=== PATIENT | male | born 1940 | race Caucasian/White ===

== ENCOUNTER 2019-01-05 12:39 | Inpatient (IN) ==
[2019-01-05] MEDS ORDERED: LOVENOX SUBQ SCH ×2 (14:30→17:30)
[2019-01-05] MEDS ORDERED: NS 1,000 ML IV SCH (14:30)
[2019-01-05 15:01] LABS: ALLEN TEST YES; BE -0.5 mmoll (-3.0-3.0); BLOOD TYPE ARTERIAL; HCO3-(ACT) 24.1 mmoll (20.0-26.0); METHB 0.5 % (0.0-1.5); PCO2(98.6) 33 mmHg (35-45); SAMPLE BLOOD; THB 12.5 g/dL (11.5-17.4); pH(98.6) 7.45 (7.35-7.45)
[2019-01-05 15:04] LABS: MODALITY ROOM AIR; O2HB 79.9 % (95.0-99.0); PO2(98.6) 43 mmHg (60-100); SAO2 82.8 % (95.0-100.0)
[2019-01-05] MEDS: DUONEB (A & A) INH PRN ×2 (15:22→23:08)
[2019-01-05] MEDS: ROCEPHIN 1 GM in NS 50 ML IV SCH (16:02)
[2019-01-05] MEDS: PROTONIX IV SCH (16:02)
[2019-01-05] MEDS: SODIUM CHLORIDE 0.9% INJ SCH (16:03)
[2019-01-05] MEDS: LEVAQUIN 250 MG/D5W 250 MG/50 ML IVPB IV SCH (17:06)
[2019-01-05] MEDS: HUMULIN R SUBQ SCH ×2 (18:45→21:54)
--- NOTE | 2019-01-05 19:39 | HISTORY AND PHYSICAL ---
CHIEF COMPLAINT: Cough, fever, shortness of breath, and hypoxemia. HISTORY OF PRESENT ILLNESS: He is an 78-year-old white gentleman with known history of COPD, was evaluated in our walk-in clinic over the weekend with COPD exacerbation. He was treated as an outpatient, and failed to improve. He came in with a second time with worsening of shortness of breath, hypoxemia, and elevated white cell count 15,000. He had a running low-grade fever, and blood pressure was getting low as well as exertional shortness of breath. Basically, he was admitted to the hospital with acute COPD exacerbation. White cell count was 15,000. PAST MEDICAL HISTORY: 1. Coronary artery disease. 2. COPD. 3. Right bundle branch block. 4. Abdominal aortic aneurysm. 5. Ischemic cardiomyopathy with chronic systolic heart failure and EF 30 to 40 percent. 6. Type 2 diabetes. 7. Deafness. 8. Hyperlipidemia. 9. Chronic nicotine dependency. 10. Simple renal cyst in the left kidney. PAST SURGICAL HISTORY: 1. Appendectomy. 2. Back surgery x8. 3. Hemorrhoidectomy. 4. 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 5. Bilateral cataract surgery. 6. Right ulnar transposition. ALLERGIES: Not known. SOCIAL HISTORY: Retired tier lift truck operator. . 3 children. Living in [place]. Continues to smoke. No alcohol. FAMILY HISTORY: Father of complications from rheumatoid arthritis at the age of 76. Mom of heart attack. HEALTH MAINTENANCE: Pneumococcal vaccine 13, was given 2018. Recently, a physical done 2 weeks ago. REVIEW OF SYSTEMS: HEENT: No headache. No vision problem. No earache. No sore throat. Neck: No goiter. No lymphadenopathy. No bruit. Cardiopulmonary: Shortness of breath, cough, and wheezing. No chest pain. GI: No nausea, vomiting, or abdominal pain. : No history of hesitancy, frequency, or dysuria. No swelling of feet. No joint pain. Neurologic: No focal symptoms or weakness. OBJECTIVE: Vital Signs: Temperature 98 degrees, pulse 77, blood pressure 111/47, and 2 L nasal cannula 93%. Height 6 feet 3, and 199 pounds. HEENT: Atraumatic, normocephalic. Pupils equal and react to light. Hearing aids placed. Neck: Supple. No lymphadenopathy. Chest: Bilateral air entry. Prolonged expiratory wheezing. Heart: Sounds are very distant. Belly is soft and nontender. Good bowel sounds. No peripheral edema or cyanosis. No obvious neurological deficits. INVESTIGATIONS: In my office, CBC showed a white cell count 15, BUN 45, creatinine 2.0. ABG: pH is 7.45, pCO2 33, PO2 43 on room air. Chest x-ray with possible right lower lobe pneumonia with COPD changes. ASSESSMENT AND PLAN: 1. An 78-year-old white gentleman admitted to the hospital with acute chronic obstructive pulmonary disease exacerbation, failure of outpatient treatment, hypoxemia, on oxygen. Repeat the chest x-ray in the morning. 2. Gentle hydration. Check the labs in the morning. 3. Bronchodilators. IV steroids and IV antibiotics with Levaquin and ceftriaxone. 4. Deep venous thrombosis and gastrointestinal prophylaxis with Lovenox and Protonix. 5. History of ischemic cardiomyopathy, currently on Coreg. 6. Chronic nicotine abuse. 7. Type 2 diabetes. We will start on Tresiba and subcutaneous sliding scale with insulin coverage. 8. PAF with status post pacemaker on apixaban 5 mg b.i.d. Discontinue Lovenox and reconcile home medications. 9. Vaccinations up-to-date. 10. Repeat the labs in the morning. cc: Robert Christine MD
[2019-01-05] MEDS ORDERED: ELIQUIS PO SCH (21:00)
[2019-01-05] MEDS: SOLU-MEDROL IV SCH (21:48)
[2019-01-05] MEDS: COREG PO SCH (21:50)
[2019-01-05] MEDS: ELIQUIS PO SCH (21:52)
[2019-01-05] MEDS: BUSPAR PO SCH (21:52)
[2019-01-06] MEDS: NS 1,000 ML IV SCH (04:34)
[2019-01-06] MEDS ORDERED: INSULIN PEN NEEDLES ONE (06:24)
[2019-01-06] MEDS: TRESIBA FLEXTOUCH U-100 SUBQ SCH ×3 (06:46→16:49)
[2019-01-06] MEDS: HUMULIN R SUBQ SCH ×4 (06:46→21:20)
[2019-01-06 07:05] LABS: BASO# 0.01 X1000 (0.0-0.2); BASO% 0.1 % (0.0-0.8); EOS# 0.01 X1000 (0.0-0.7); EOS% 0.1 % (0.0-10.0); HEMATOCRIT 35.7 % (42.0-52.0); IMM GRAN# 0.12 X1000 (0.0-0.04); IMM GRAN% 1.6 % (0.0-0.5); LYMPH% 12.1 % (20.5-51.1); MCH 30.4 PG (27-31); MCHC 33.6 g/dL (33-37); MCV 90.4 FL (81-99); MONO% 2.7 % (1.7-9.3); MPV 10.5 FL (7.4-10.4); NEUT# 6.17 X1000 (1.4-6.5); NEUT% 83.4 % (42.2-75.2); PLT 254 X1000 (130-400); RBC 3.95 XMIL (4.7-6.1); RDW 13.6 % (11.5-14.5); WBC 7.41 X1000 (4.8-10.8)
[2019-01-06 07:15] LABS: ALBUMIN 3.3 g/dL (3.5-5.0); CALCIUM 8.7 mg/dL (8.8-10.2); CREATININE 1.6 mg/dL (0.7-1.2); POTASSIUM 5.3 mmol/L (3.5-5.1); TOTAL BILIRUBIN 0.17 mg/dL (0.20-1.00); TOTAL PROTEIN 6.5 g/dL (6.3-8.3)
[2019-01-06] MEDS: BREO ELLIPTA 100/25 MCG INH INH SCH (08:30)
[2019-01-06] MEDS: SPIRIVA INH SCH (08:30)
--- NOTE | 2019-01-06 08:34 | Diag Imaging Result Doc PS360 ---
EXAM: CHEST-2 VIEWS INDICATION: hypoxia TECHNIQUE: 3-D COMPARISON: 05/14/2018 FINDINGS: There is groundglass airspace consolidation in the left mid to lower lung zone suggesting possible pneumonia. There is also likely a component of atelectasis at the left lung base. The lungs are hyperinflated suggesting COPD. There is no discrete pleural fluid collection or pneumothorax. The cardiomediastinal silhouette and central vasculature are grossly unremarkable. The pacemaker/defibrillator is in stable position. IMPRESSION: Airspace consolidation at the left mid and lower lung zone suggesting possible pneumonia with a likely component of atelectasis at the left lung base. Electronically signed by Immanuel York 01/06/2019 8:32 AM
[2019-01-06] MEDS: BUSPAR PO SCH (08:43)
[2019-01-06] MEDS: SOLU-MEDROL IV SCH (08:44)
[2019-01-06] MEDS: VITAMIN D PO SCH (08:44)
[2019-01-06] MEDS: ASPIRIN EC PO SCH (08:45)
[2019-01-06] MEDS: IMDUR PO SCH (08:45)
[2019-01-06] MEDS: ELIQUIS PO SCH (08:45)
[2019-01-06] MEDS: COREG PO SCH (08:46)
[2019-01-06] MEDS: ALDACTONE PO SCH (08:46)
[2019-01-06] MEDS: NICODERM PATCH TD SCH (08:50)
[2019-01-06] MEDS: PROTONIX IV SCH (13:30)
[2019-01-06] MEDS: ROCEPHIN 1 GM in NS 50 ML IV SCH (13:30)
[2019-01-06] MEDS: LEVAQUIN 250 MG/D5W 250 MG/50 ML IVPB IV SCH (14:07)
--- NOTE | 2019-01-06 21:00 | PROGRESS NOTE ---
DATE: 01/06/2019 SUBJECTIVE: Interval history was reviewed. Patient with no chest pain. Chest x-ray was reviewed. He has left lingular pneumonia as well as in the right side. REVIEW OF SYSTEMS: No fever. OBJECTIVE: Vital Signs: Temperature is 98 degrees, pulse 69. Vitals are stable. HEENT: Within normal limits. Chest: Poor air entry. Expiratory wheezing with crackles in the left base. Heart: Sounds are regular. Abdomen: Belly is soft, nontender. Neurologic: No obvious deficits. INVESTIGATIONS: CBC: White cell count 7.4, hematocrit 35, platelets 254,000. PO2 43 on room air. SMA 7: Sodium 137, potassium 5.3, chloride 107, BUN 46, creatinine 1.6, glucose 292. LFTs were normal. ASSESSMENT AND PLAN: 1. Acute chronic obstructive pulmonary disease with left lower lobe pneumonia, currently on intravenous Levaquin, intravenous steroids, intravenous ceftriaxone, bronchodilators. 2. Chronic tobacco abuse. Nicotine patch. 3. Ischemic cardiomyopathy and diabetes are stable. Continue present treatment. 4. No need for deep venous thrombosis prophylaxis since the patient is on Eliquis. 5. Repeat the labs on . LEVEL OF DOCUMENTATION: 25 minutes. cc: Robert Christine MD
[2019-01-07] MEDS: NS 1,000 ML IV SCH (00:27)
[2019-01-07] MEDS: BUSPAR PO SCH ×3 (00:29→21:24)
[2019-01-07] MEDS: COREG PO SCH ×3 (00:29→21:24)
[2019-01-07] MEDS: ELIQUIS PO SCH ×3 (00:30→21:24)
[2019-01-07] MEDS: SOLU-MEDROL IV SCH ×3 (00:31→21:25)
[2019-01-07] MEDS: HUMULIN R SUBQ SCH ×5 (06:11→21:26)
[2019-01-07] MEDS: TRESIBA FLEXTOUCH U-100 SUBQ SCH ×3 (06:11→17:02)
[2019-01-07] MEDS: SPIRIVA INH SCH (08:17)
[2019-01-07] MEDS: BREO ELLIPTA 100/25 MCG INH INH SCH (08:18)
[2019-01-07] MEDS: VITAMIN D PO SCH (08:27)
[2019-01-07] MEDS: ASPIRIN EC PO SCH (08:27)
[2019-01-07] MEDS: ALDACTONE PO SCH (08:27)
[2019-01-07] MEDS: IMDUR PO SCH (08:27)
[2019-01-07] MEDS: NICODERM PATCH TD SCH (08:27)
[2019-01-07] MEDS: SODIUM CHLORIDE 0.9% INJ SCH (14:11)
[2019-01-07] MEDS: PROTONIX IV SCH (14:11)
[2019-01-07] MEDS: LEVAQUIN 250 MG/D5W 250 MG/50 ML IVPB IV SCH (14:11)
[2019-01-07] MEDS: ROCEPHIN 1 GM in NS 50 ML IV SCH (15:27)
[2019-01-07] MEDS ORDERED: INSULIN PEN NEEDLES ONE (21:22)
--- NOTE | 2019-01-07 21:32 | PROGRESS NOTE ---
DATE: 01/07/2019 SUBJECTIVE: The patient is a little better. Decreased shortness of breath and wheezing. He is anxious to go home tomorrow. REVIEW OF SYSTEMS: None reported. EXAM: Vital signs: Temperature is 97.8. Vitals are stable. HEENT: Within normal limits. Decreased crackles and wheezing. Heart: Sounds are regular. Abdomen: Belly is soft, nontender. Neurologic: No obvious neurological deficits. LABORATORIES: Blood sugars are running a little bit high. ASSESSMENT AND PLAN: 1. Chronic obstructive pulmonary disease with bilateral pneumonia, currently on Levaquin, ceftriaxone, IV steroids. 2. Ischemic cardiomyopathy, stable. 3. Paroxysmal atrial fibrillation on Eliquis, IV Coreg. I will repeat the chest x-ray in the morning as well as CBC and SMA 7. 4. Diabetes on insulin, slightly worsening due to steroids. Based on the labs and x-ray, the disposition will be made. LEVEL OF DOCUMENTATION: 25 minutes. cc: Robert Christine MD
[2019-01-08] MEDS: TRESIBA FLEXTOUCH U-100 SUBQ SCH ×2 (06:21→14:33)
[2019-01-08] MEDS: HUMULIN R SUBQ SCH ×2 (06:22→10:38)
[2019-01-08 06:51] LABS: BASO# 0.01 X1000 (0.0-0.2); BASO% 0.1 % (0.0-0.8); EOS# 0.01 X1000 (0.0-0.7); EOS% 0.1 % (0.0-10.0); HEMATOCRIT 37.7 % (42.0-52.0); HEMOGLOBIN 12.7 g/dL (14.0-18.0); IMM GRAN# 0.25 X1000 (0.0-0.04); IMM GRAN% 1.5 % (0.0-0.5); LYMPH# 1.91 X1000 (1.2-3.4); LYMPH% 11.5 % (20.5-51.1); MCH 30.3 PG (27-31); MCHC 33.7 g/dL (33-37); MONO# 0.68 X1000 (0.11-0.59); MONO% 4.1 % (1.7-9.3); MPV 9.8 FL (7.4-10.4); NEUT# 13.71 X1000 (1.4-6.5); NEUT% 82.7 % (42.2-75.2); PLT 345 X1000 (130-400); RBC 4.19 XMIL (4.7-6.1); RDW 13.6 % (11.5-14.5); WBC 16.57 X1000 (4.8-10.8)
[2019-01-08 07:05] LABS: CALCIUM 8.4 mg/dL (8.8-10.2); CREATININE 1.7 mg/dL (0.7-1.2); POTASSIUM 4.7 mmol/L (3.5-5.1)
[2019-01-08] MEDS: BREO ELLIPTA 100/25 MCG INH INH SCH (08:23)
[2019-01-08] MEDS: SPIRIVA INH SCH (08:24)
--- NOTE | 2019-01-08 09:03 | Diag Imaging Result Doc PS360 ---
EXAM: CHEST-2 VIEWS 01/08/2019 HISTORY: SOB TECHNIQUE: PA and lateral chest COMMENT: There is a pacemaker on the left. There is apical pleural thickening particularly on the left. There is increased interstitial opacity in both lung bases which was also present on the previous study of 01/06/2019 and that of 05/14/2018. There are is a linear opacity vertically oriented laterally in the right lung which is also presumably due to fibrosis. The heart size and pulmonary vascularity are within normal limits. IMPRESSION: Pulmonary fibrosis. Electronically signed by Zeke Nagel 01/08/2019 9:01 AM
[2019-01-08] MEDS: SOLU-MEDROL IV SCH (09:18)
[2019-01-08] MEDS: NICODERM PATCH TD SCH ×2 (09:18→09:25)
[2019-01-08] MEDS: BUSPAR PO SCH (09:19)
[2019-01-08] MEDS: ALDACTONE PO SCH (09:19)
[2019-01-08] MEDS: COREG PO SCH (09:19)
[2019-01-08] MEDS: ELIQUIS PO SCH (09:19)
[2019-01-08] MEDS: ASPIRIN EC PO SCH (09:19)
[2019-01-08] MEDS: IMDUR PO SCH (09:19)
[2019-01-08] MEDS: VITAMIN D PO SCH (09:20)
[2019-01-08] MEDS: LEVAQUIN 250 MG/D5W 250 MG/50 ML IVPB IV SCH (14:33)
[2019-01-08] MEDS: ROCEPHIN 1 GM in NS 50 ML IV SCH (14:33)
[2019-01-08] MEDS: PROTONIX IV SCH (14:34)
[2019-01-08] MEDS: SODIUM CHLORIDE 0.9% INJ SCH (14:34)
[2019-01-08 16:33] VITALS: BP 154/66
[2019-01-08] MEDS ORDERED: PNEUMOVAX 23 IM ONE (18:35)
--- NOTE | 2019-01-09 05:28 | DISCHARGE SUMMARY ---
ADMISSION DATE: 01/05/2019 DISCHARGE DATE: 01/08/2019 DISCHARGING DIAGNOSES: Acute chronic obstructive pulmonary disease exacerbation with bilateral pneumonia, right lower lobe and left lingula. SECONDARY DIAGNOSES: 1. Coronary artery disease with chronic systolic heart failure with ejection fraction of 30 to 40 percent. 2. Chronic obstructive pulmonary disease. 3. Type 2 diabetes. 4. Deafness. 5. Hyperlipidemia. 6. Chronic nicotine dependency. 7. Simple renal cyst in the left kidney. 8. Dehydration. 9. PAF with status post pacemaker on anticoagulation with Eliquis 5 mg p.o. b.i.d. 10. Chronic right bundle-branch block. 11. Abdominal aortic aneurysm 4 cm, stable. BRIEF HISTORY: Please see the H and P that was done on the day of admission 01/05/2019. In brief, he is an 78-year-old white gentleman who was admitted to the hospital after failure of outpatient treatment with COPD exacerbation with predominantly pneumonia in the right lower lobe, and the left lingula. White cell count was going high. The patient was admitted to the hospital with aggressive antibiotics, bronchodilators, and bronchial toilet. The patient was given IV fluids for initial low blood pressure. He was very hypoxic, and after treatment his symptoms were much improved. Followup chest x-ray slowly improving. The patient is eager to go home to do some errands in the morning of closing the house. The rest of the hospital course was uneventful. LABORATORY DATA: White cell count 16.57, hematocrit 37, and platelet count 345,000. Initial ABG with PO2 43 on room air. Sodium 141, potassium 4.7, BUN 51, creatinine 1.7, and glucose 193. Follow up chest x-ray is improving. Pulse oximetry 95% on room air. DISCHARGE INSTRUCTIONS: 1. Quit smoking. 2. Pneumococcal 23 vaccine was given. Pneumococcal 13 was given last year. 3. Coreg 25 p.o. b.i.d. 4. Lisinopril 20 p.o. b.i.d. 5. Aldactone 25 daily. 6. Isosorbide 20 mg daily. 7. Vitamin D3 800 units daily. 8. Breo 1 puff daily. 9. Levaquin 250 daily for 10 days. 10. Medrol Dosepak. 11. Nicotrol patch. 12. BuSpar 10 p.o. b.i.d. 13. Aspirin 81 mg daily. 14. Spiriva 1 puff daily. 15. Albuterol Atrovent nebulizers q.6h as needed. 16. Eliquis 5 mg p.o. b.i.d. We will change the dose according to the chronic kidney disease. 17. Tresiba 20 units in the morning. 18. Follow up in my office in 10 days. cc: MD YANG Rodney
== END 2019-01-08 20:00 | disposition home or self-care (01) | DRG 190 ==
LOC: DIRADM 12:39 → 3N 14:03
PROVIDERS: ADMIT Internal Medicine; ATTEND Internal Medicine